=== PATIENT | female | born 1960 | race Caucasian/White ===

== ENCOUNTER → 2016-05-27 | Outpatient (CLI) | payer OTHER ==
--- NOTE | 2016-05-27 16:08 | CT ---
Procedure: CT CERVICAL SPINE WITHOUT IV CONTRAST Exam date: 05/27/2016 2:00 PM CDT Ordering Provider: Nika Sevilla Clinical Indication: NECK PAIN Comparison: None Technique: Using a multislice scanner, sequential axial imaging was obtained from the skull base to the T1 level. 2-D sagittal and coronal reconstruction images were obtained. Exam was reconstructed at 2 mm slice thickness. Findings: Postsurgical changes of an ACDF from C6 to C7. No evidence of hardware failure. There is no significant osseous bridging across the disc space or posterior column. There has been prior surgical fusion of C5-C6 with osseous bridging across the disc space. Partial osseous bridging across the right facet pillar with persistence of joint space across the left facet pillar. There is advanced degenerative disc changes at C4-C5 with endplate bony ridging and degenerative anterolisthesis secondary to facet arthrosis. Facet joints demonstrate right greater than left facet arthrosis with subchondral cystic change and subchondral sclerosis. Trace degenerative anterolisthesis of C3 on C4. There is also degenerative changes atlantodental articulation. There is no acute fracture. No evidence of traumatic subluxation. The vertebral body heights are normal. There is no lytic or sclerotic lesion. The prevertebral soft tissues are normal. IMPRESSION: 1. Nonacute CT of the cervical spine. 2. Extensive postsurgical changes and degenerative changes of degenerative disc changes and right greater than left facet arthrosis. Electronically signed by: Juan Ramon Boyle MD 05/27/2016 4:06 PM CDT
== END | disposition home or self-care (01) ==
LOC: CT 14:05
PROVIDERS: ATTEND Nurse Practitioner Family
DX: M54.2 Cervicalgia (principal)

== ENCOUNTER 2016-07-10 14:29 | Emergency (ER) | payer OTHER ==
[2016-07-10] MEDS ORDERED: ONDANSETRON ODT 8 MG TAB SL ONE (14:51)
[2016-07-10] MEDS ORDERED: PROCHLORPERAZINE INJ 10 MG/2 ML VIAL IV ONE ×2 (14:53→21:24)
[2016-07-10] MEDS ORDERED: SODIUM CHLORIDE 0.9% 1000ML 1,000 ML IVS ONE ×2 (14:53→20:28)
--- NOTE | 2016-07-10 15:16 | RAD ---
3 view abdomen. Indication: n/v Comparison: None. Impression: Heart size normal. Emphysema suspected. Several calcified granulomas in the right lung. Otherwise, lungs clear. Hydronephrosis aorta. Cholecystectomy clips. No free air. Bowel gas pattern nonspecific. Questionable centimeter linear calcification projecting medial to the left kidney. CT could better evaluate. Multiple tiny calcified phleboliths in the pelvis as well as right lateral to the lumbosacral junction. No acute osseous abnormality. Electronically signed by: Piotr Santana MD 07/10/2016 3:15 PM CDT
[2016-07-10] MEDS ORDERED: PROMETHAZINE HCL 25 MG TAB PO ONE (16:45)
[2016-07-10] MEDS ORDERED: ONDANSETRON INJ 4 MG/2 ML VIAL IV ONE (16:49)
[2016-07-10] MEDS ORDERED: SCOPOLAMINE PATCH 1.5MG 1 EA TD ONE (17:18)
--- NOTE | 2016-07-10 17:46 | ED.PDOC ---
History of Present Illness - General Source: patient Exam Limitations: no limitations - History of Present Illness Initial Comments: the patient is a 55-year-old female presenting to the emergency room secondary to nausea and vomiting. She has been having some diarrhea for the previous day. The nausea and vomiting started several hours prior to arrival here. She is not throwing up any blood. She is not really having abdominal pain. No fevers. She does not normally have any GI issues. There've been multiple members of the community with similar symptoms recently. No fevers. No syncope. no chest pain or shortness of breath. She is significantly anxious. Timing/Duration: 4-6 hours Severity: severe Improving Factors: nothing Worsening Factors: nothing Associated Symptoms: loss of appetite, malaise, nausea/vomiting <Carlos Alaniz - Last Filed: 07/10/16 17:43> <Daniella Seals - Last Filed: 07/10/16 22:24> - General Chief Complaint: GI Problem Stated Complaint: N/V/D Time Seen by Provider: 07/10/16 14:52 - History of Present Illness Allergies/Adverse Reactions: Allergies Cyclobenzaprine [From Flexeril] Allergy (Verified 09/07/15 13:12) Ketorolac Tromethamine [From Toradol] Allergy (Verified 09/07/15 13:12) Tramadol Allergy (Verified 09/07/15 13:12) Home Medications: Ambulatory Orders Albuterol Sulfate Nebs [Proventil Nebs] 2.5 mg INH DAILY 09/07/15 Citalopram Hydrobromide [Celexa] 40 mg PO DAILY 09/07/15 Hydroxyzine HCl 50 mg PO DAILY 09/07/15 Promethazine HCl 25 mg PO Q6H PRN #15 tab 07/10/16 Review of Systems - Review of Systems Constitutional: States: malaise EENTM: States: no symptoms reported Respiratory: States: no symptoms reported Cardiology: States: no symptoms reported Gastrointestinal/Abdominal: States: see HPI, diarrhea, nausea, vomiting Genitourinary: States: no symptoms reported Musculoskeletal: States: no symptoms reported Skin: States: no symptoms reported Neurological: States: anxiety Endocrine: States: no symptoms reported All other Systems: No Change from Baseline <Carlos Alaniz - Last Filed: 07/10/16 17:43> Past Medical History (General) - Patient Medical History Hx Seizures: No Hx Stroke: No Hx Asthma: Yes Hx of COPD: Yes Hx Cardiac Disorders: No Hx Congestive Heart Failure: No Hx Hypertension: Yes Hx Diabetes: No Hx Cancer: No Hx Hepatitis C: No Surgical History: cholecystectomy, Hysterectomy, other - Vaccination History Hx Influenza Vaccination: Yes Hx Pneumococcal Vaccination: No - Social History Hx Tobacco Use: Yes Hx Alcohol Use: No - Female History Patient : No <Carlos Alaniz - Last Filed: 07/10/16 17:43> Family Medical History - Family History Mother Family History: Unknown <Carlos Alaniz - Last Filed: 07/10/16 17:43> Physical Exam - Physical Exam General Appearance: Alert, Anxious Eye Exam: bilateral normal Ears, Nose, Throat: hearing grossly normal, normal ENT inspection, normal pharynx Neck: non-tender, full range of motion, supple, normal inspection Respiratory: chest non-tender, lungs clear, normal breath sounds, no respiratory distress, no accessory muscle use Cardiovascular/Chest: normal peripheral pulses, regular rate, rhythm, no edema Peripheral Pulses: radial,right: 2+, radial,left: 2+, dorsalis pedis,right: 2+, dorsalis pedis,left: 2+ Gastrointestinal/Abdominal: non tender Rectal Exam: deferred Back Exam: normal inspection, no CVA tenderness Extremity: normal range of motion, non-tender, normal inspection, no pedal edema , normal capillary refill Neurologic: no motor/sensory deficits, alert, oriented x 3 Skin Exam: normal color Comments: Vital Signs - 24 hr 07/10/16 07/10/16 14:38 16:15 Pulse Rate [RAC 73 66 ] Respiratory 24 18 Rate Blood Pressure 187/101 158/124 [RAC] O2 Sat by Pulse 100 100 Oximetry <Carlos Alaniz Katya - Last Filed: 07/10/16 17:43> Progress - Results/Orders Results/Orders: Laboratory Tests 07/10/16 07/10/16 15:30 15:30 WBC 7.6 RBC 4.89 Hgb 15.9 Hct 46.1 MCV 94.3 MCH 32.4 H MCHC 34.4 RDW 14.0 Plt Count 253 MPV 8.5 Absolute Neuts (auto) 5.20 Absolute Lymphs (auto) 1.90 Absolute Monos (auto) 0.40 Absolute Eos (auto) 0.00 Absolute Basos (auto) 0.10 Neutrophils % 68.3 Lymphocytes % 25.1 Monocytes % 5.3 Eosinophils % 0.3 L Basophils % 1.0 Sodium 139 Potassium 3.7 Chloride 105 Carbon Dioxide 23 Anion Gap 14.7 BUN 10 Creatinine 0.60 BUN/Creatinine Ratio 16.7 Random Glucose 129 H Serum Osmolality 278.3 Calcium 10.1 Total Bilirubin 0.7 AST 34 ALT 27 Alkaline Phosphatase 117 Creatine Kinase 50 CK-MB (CK-2) 1.3 CK-MB (CK-2) % Not Reportable Troponin I < 0.02 B-Natriuretic Peptide 54.4 Serum Total Protein 8.6 H Albumin 4.5 Globulin 4.1 H Albumin/Globulin Ratio 1.1 Amylase 32 Lipase 33 abdominal x-ray series is nonspecific. No evidence of obstruction. No evidence of pneumonia. No evidence of ileus at this time. <Carlos Alaniz L - Last Filed: 07/10/16 17:43> - Progress Progress: 07/10/16 22:00 Patient was re-evaluated at 2014. She continued to be anxious and continued to have nausea. She was given Ativan 0.5 mg to help with the anxiety and another liter of fluids was started. At 21:15, Patient had had one episode of vomiting with a minimal amount of bile. She was given prochlorperizine 5 mg IV. At 2200, Patient's IV n her foot was no longer patent. The bolus was stopped. Since Patient has had no vomiting, she will be sent home with promethazine 25 mg PO Q6H PRN nausea/vomiting. - Results/Orders Results/Orders: Laboratory Last Values WBC 7.6 K/mm3 (4.8-10.8) 07/10/16 15:30 RBC 4.89 M/mm3 (4.20-5.40) 07/10/16 15:30 Hgb 15.9 gm/dL (12.0-16.0) 07/10/16 15:30 Hct 46.1 % (36.0-47.0) 07/10/16 15:30 MCV 94.3 fl (81.0-99.0) 07/10/16 15:30 MCH 32.4 pg (27.0-31.0) H 07/10/16 15:30 MCHC 34.4 g/dL (33.0-37.0) 07/10/16 15:30 RDW 14.0 % (11.5-14.5) 07/10/16 15:30 Plt Count 253 K/mm3 (130-400) 07/10/16 15:30 MPV 8.5 fl (7.40-10.4) 07/10/16 15:30 Absolute Neuts (auto) 5.20 K/uL (1.8-6.8) 07/10/16 15:30 Absolute Lymphs (auto) 1.90 K/uL (1.0-3.4) 07/10/16 15:30 Absolute Monos (auto) 0.40 K/uL (0.2-0.8) 07/10/16 15:30 Absolute Eos (auto) 0.00 K/uL (0.0-0.4) 07/10/16 15:30 Absolute Basos (auto) 0.10 K/uL (0.0-0.1) 07/10/16 15:30 Neutrophils % 68.3 % (42.0-78.0) 07/10/16 15:30 Lymphocytes % 25.1 % (20.0-50.0) 07/10/16 15:30 Monocytes % 5.3 % (2.0-9.0) 07/10/16 15:30 Eosinophils % 0.3 % (1.0-5.0) L 07/10/16 15:30 Basophils % 1.0 % (0.0-2.0) 07/10/16 15:30 Sodium 139 mmol/L (135-145) 07/10/16 15:30 Potassium 3.7 mmol/L (3.6-5.0) 07/10/16 15:30 Chloride 105 mmol/L (101-111) 07/10/16 15:30 Carbon Dioxide 23 mmol/L (21-31) 07/10/16 15:30 Anion Gap 14.7 (12-18) 07/10/16 15:30 BUN 10 mg/dL (7-18) 07/10/16 15:30 Creatinine 0.60 mg/dL (0.6-1.3) 07/10/16 15:30 BUN/Creatinine Ratio 16.7 (10-20) 07/10/16 15:30 Random Glucose 129 mg/dL (70-105) H 07/10/16 15:30 Serum Osmolality 278.3 mOsm/L (275-295) 07/10/16 15:30 Calcium 10.1 mg/dL (8.4-10.2) 07/10/16 15:30 Total Bilirubin 0.7 mg/dL (0.2-1.0) 07/10/16 15:30 AST 34 IU/L (10-42) 07/10/16 15:30 ALT 27 IU/L (10-60) 07/10/16 15:30 Alkaline Phosphatase 117 IU/L (42-121) 07/10/16 15:30 Creatine Kinase 50 IU/L (26-140) 07/10/16 15:30 CK-MB (CK-2) 1.3 ng/mL (0.0-4.4) 07/10/16 15:30 CK-MB (CK-2) % Not Reportable 07/10/16 15:30 Troponin I < 0.02 ng/mL (0.01-0.05) 07/10/16 15:30 B-Natriuretic Peptide 54.4 pg/ml (0-100) 07/10/16 15:30 Serum Total Protein 8.6 gm/dL (6.4-8.2) H 07/10/16 15:30 Albumin 4.5 g/dl (3.2-5.5) 07/10/16 15:30 Globulin 4.1 gm/dL (2.3-3.5) H 07/10/16 15:30 Albumin/Globulin Ratio 1.1 (1.1-1.9) 07/10/16 15:30 Amylase 32 U/L (28-100) 07/10/16 15:30 Lipase 33 U/L (22-51) 07/10/16 15:30 Urine Color Yellow (Yellow) 07/10/16 18:43 Urine Appearance Clear (Clear) 07/10/16 18:43 Urine pH 6.5 (4.5-7.8) 07/10/16 18:43 Ur Specific Bowen 1.025 (1.005-1.030) 07/10/16 18:43 Urine Protein 100 mg/dL H 07/10/16 18:43 Urine Glucose (UA) Negative mg/dL (Negative) 07/10/16 18:43 Urine Ketones 40 mg/dL (NEGATIVE) H 07/10/16 18:43 Urine Blood Trace-intact (Negative) H 07/10/16 18:43 Urine Nitrite Negative 07/10/16 18:43 Urine Bilirubin Small (NEGATIVE) H 07/10/16 18:43 Urine Urobilinogen 1.0 mg/dL (0.2-1.0) 07/10/16 18:43 Ur Leukocyte Esterase Negative (Negative) 07/10/16 18:43 Urine RBC 1-3 /hpf 07/10/16 18:43 Urine WBC 0-1 /hpf 07/10/16 18:43 Ur Epithelial Cells 1-3 /hpf 07/10/16 18:43 Amorphous Sediment 1+ 07/10/16 18:43 Urine Bacteria Rare 07/10/16 18:43 Urine Mucus Large 07/10/16 18:43 Urine HCG, Qual Negative 07/10/16 18:43 <Daniella Seals - Last Filed: 07/10/16 22:24> Departure <Carlos Alaniz - Last Filed: 07/10/16 17:43> - Departure Time of Disposition: 22:06 Diet: bland diet <Daniella Seals - Last Filed: 07/10/16 22:24> - Departure Clinical Impression: Gastroenteritis Disposition: Discharge to Home or Self Care Condition: Good Departure Forms: ED Discharge - Pt. Copy, Patient Portal Self Enrollment Instructions: DI for Viral Gastroenteritis -- Adult, Viral Gastroenteritis, Gastroenteritis Diet Referrals: Ariel Zelaya MD [Primary Care Provider] - 1-5 Days Prescriptions: Promethazine HCl 25 mg PO Q6H PRN #15 tab PRN Reason: Nausea/Vomiting Home Medications: Ambulatory Orders Albuterol Sulfate Nebs [Proventil Nebs] 2.5 mg INH DAILY 09/07/15 Citalopram Hydrobromide [Celexa] 40 mg PO DAILY 09/07/15 Hydroxyzine HCl 50 mg PO DAILY 09/07/15 Promethazine HCl 25 mg PO Q6H PRN #15 tab 07/10/16 Additional Instructions: BRAT diet (bananas, rice, applesauce, toast). Stay well-hydrated. Follow up with PCP if symptoms persist. Follow up in ED for any continued vomiting, fever , or severe abdominal pain.
[2016-07-10] MEDS ORDERED: HYDROcodone 7.5MG/APAP 325MG 1 EA TAB PO ONE (18:52)
[2016-07-10] MEDS ORDERED: CITALOPRAM HBR 20 MG TAB ONE (19:07)
[2016-07-10] MEDS ORDERED: CELECOXIB 100 MG CAP PO ONE (19:08)
[2016-07-10] MEDS ORDERED: HYDROcodone 10MG/APAP 325MG 1 EA TAB PO ONE (19:25)
[2016-07-10] MEDS ORDERED: SODIUM CHLORIDE 0.9% 1000ML 1,000 ML ONE (20:29)
[2016-07-10] MEDS ORDERED: PROMETHAZINE TAB (ER DISP) 25 MG TAB PO ONE (22:22)
[2016-07-10 22:47] VITALS: BP 158/74; TEMP 97.8; O2SAT 98
[2016-07-11] MEDS ORDERED: CITALOPRAM HBR 20 MG TAB PO ONE (18:53)
== END 2016-07-10 22:35 | disposition home or self-care (01) ==
LOC: ER 14:29
DX: K52.9 Noninfective gastroenteritis and colitis, unspecified (principal); J44.9 Chronic obstructive pulmonary disease, unspecified; I10 Essential (primary) hypertension; Z79.899 Other long term (current) drug therapy
CPT/HCPCS: 36415; 74020; 80053; 81001; 81025; 82150; 82550; 82553; 83690; 83880; 84484; 85025; J0780; J2060; J2405; J7030; Q0169

== ENCOUNTER → 2016-07-22 | Outpatient (CLI) | payer OTHER | END | disposition home or self-care (01) | LOC: YCFC.O 15:14 | PROVIDERS: ATTEND Anesthesiology Pain Medicine | DX: Z79.891 Long term (current) use of opiate analgesic (principal) ==

== ENCOUNTER → 2016-10-21 | Outpatient (CLI) | payer OTHER | END | disposition home or self-care (01) | LOC: YCFC.O 12:53 | PROVIDERS: ATTEND Anesthesiology Pain Medicine | DX: Z79.891 Long term (current) use of opiate analgesic (principal) ==

== ENCOUNTER → 2016-11-25 | Outpatient (CLI) | payer OTHER | LOC: MAMMO 14:42 | PROVIDERS: ATTEND Family Medicine | DX: Z12.31 Encounter for screening mammogram for malignant neoplasm of breast (principal) ==

== ENCOUNTER → 2016-11-28 | Outpatient (CLI) | payer OTHER ==
--- NOTE | 2016-11-29 16:54 | RAD ---
PROCEDURE: Chest,2 Views CLINICAL HISTORY: COUGH INDICATION: Same as above COMPARISON: None TECHNIQUE: PA and and lateral chest radiographs were obtained. FINDINGS: Benign calcified lymph nodes are seen in the right paratracheal region and the right hilum There are no discrete airspace infiltrates, pneumothoraces or pleural effusions. The pulmonary vascularity is normal The cardiomediastinal silhouette is unremarkable for patient's age and sex. IMPRESSION: There is no acute pleural-parenchymal process seen in the imaged lung sal[place]. Place of interpretation: [facility]. Electronically signed by: Yeison Zabala MD 11/29/2016 4:53 PM CDT Workstation: [id number]
== END ==
LOC: YCFC.O 12:02
PROVIDERS: ATTEND Nurse Practitioner Family
DX: R05 Cough (principal)

== ENCOUNTER → 2017-01-13 | Outpatient (CLI) | payer OTHER ==
--- NOTE | 2017-01-14 10:33 | US ---
EXAM DESCRIPTION: Carotid Duplex CLINICAL HISTORY: CAROTID ARTERY STENOSIS AND occlusion COMPARISON: None Available. TECHNIQUE: Multiple grayscale, color, and spectral Doppler images of the bilateral carotid systems. FINDINGS: Mild scattered atherosclerotic plaque and mild intimal thickening throughout both carotid systems. Up to 40% area stenosis in the proximal right internal carotid artery based on grayscale imaging. Up to 30% area stenosis in the proximal left internal carotid artery on grayscale imaging. All duplex waveforms and velocities are within normal limits on both sides. ICA/CCA ratios are normal. Both vertebral arteries demonstrate antegrade flow. The external carotid arteries are patent. IMPRESSION: 1. Atherosclerosis and intimal thickening with less than 50% stenosis in both internal carotid arteries by ratio and velocity criteria. Electronically signed by: Humberto Borges MD 01/14/2017 10:31 AM CDT
== END | disposition home or self-care (01) ==
LOC: US 13:15
PROVIDERS: ATTEND Family Medicine
DX: I65.23 Occlusion and stenosis of bilateral carotid arteries (principal)

== ENCOUNTER → 2017-01-26 | Outpatient (CLI) | payer OTHER | END | disposition home or self-care (01) | LOC: YCFC.O 09:55 | PROVIDERS: ATTEND Anesthesiology Pain Medicine | DX: Z79.891 Long term (current) use of opiate analgesic (principal) ==

== ENCOUNTER → 2017-07-17 | Outpatient (CLI) | payer OTHER ==
--- NOTE | 2017-07-17 18:22 | MRI ---
EXAM DESCRIPTION: Lumbar Spine w/o Contrast CLINICAL HISTORY: SPINAL STENOSIS COMPARISON: Previous study December 03, 2015 TECHNIQUE: MRI of the lumbar spine is performed according to our usual protocol with axial and sagittal multi sequence imaging. FINDINGS: Sagittal T2 images reveal decreased signal intensity consistent with desiccation of the intervertebral discs and lower thoracic and lumbar levels except for L2-3. Posterior annular bulges are most prominent at L3-4 through L5-S1. No prevertebral mass or aneurysm. Lower cord and conus appear normal. Tip of the conus is behind L1. Compared to previous sagittal T2 images November 23, 2015, findings appear very similar. Sagittal T1 images reveal benign marrow signal characteristics. Normal T1 signal intensity and appearance of the lower cord and conus. Sagittal STIR images are negative for marrow edema within the vertebral bodies or posterior elements. No paraspinous fluid collection or cystic lesion. No definite change on STIR images compared to previous study November 23, 2015. Axial T1 and T2-weighted images were obtained to evaluate the disc levels. T12-L1: No posterior annular bulge or herniation. No spinal stenosis or neural foraminal narrowing. Facets appear normal. Normal lower cord. L1-2: Moderate diffuse posterior annular bulge without focal herniation. No spinal stenosis or neural foraminal narrowing. Facets appear mildly hypertrophic with prominent ligamentum flavum thickening. No significant subarticular recess narrowing. L2-3: Mild diffuse posterior annular bulge with mild left lateral accentuation. No spinal stenosis or neural foraminal narrowing. Hypertrophic facets with ligamentum flavum thickening cause mild left subarticular recess narrowing. L3-4: [id number] diffuse posterior annular bulge is seen with left more than right subarticular recess narrowing. Facet and ligamentum flavum hypertrophy contribute to the narrowing. Moderate left neural foraminal narrowing is present with mild neural foraminal narrowing on the right. No high-grade spinal stenosis though there is central crowding of the nerve roots. L4-5: Moderately severe diffuse posterior bulge is seen with facet hypertrophy and ligamentum flavum thickening causing severe narrowing of right more than left subarticular recesses affecting the descending L5 nerve roots. There is mild narrowing of the upper lateral recesses as well. Moderately severe left and severe right neural foraminal narrowing is present. Compared to previous study the degree of neural foraminal narrowing at this level appears slightly worsened. L5-S1: Moderate diffuse posterior annular bulge is seen with subarticular recess narrowing. Mild facet and ligamentum flavum hypertrophy is present. On the sagittal images, there is severe narrowing of the entry zone to the right neural foramen with moderately severe left neural foraminal narrowing as well. Compared to previous study, neural foraminal narrowing at L5-S1 appears stable. Upper sacrum appears intact. Degenerative changes are seen at the SI joints. No retroperitoneal mass or aneurysm. IMPRESSION: Moderate diffuse posterior annular bulges at L3-4 through L5-S1 levels with associated subarticular recess and neural foraminal compromise as described. [id number] spinal stenosis at L4-5 unchanged from previous study. Since previous study, slight worsening of bilateral L4-5 neural foraminal narrowing is noted. No other significant change. Electronically signed by: Clifton Guo MD 07/17/2017 6:21 PM CDT
== END ==
LOC: MRI 12:52
PROVIDERS: ATTEND Family Medicine
DX: M48.062 Spinal stenosis, lumbar region with neurogenic claudication (principal)

== ENCOUNTER 2017-08-09 09:22 | Emergency (ER) | payer OTHER ==
--- NOTE | 2017-08-09 09:42 | ED.PDOC ---
History of Present Illness - General Chief Complaint: Trauma Stated Complaint: sternal pain Time Seen by Provider: 08/09/17 09:40 Source: patient Exam Limitations: no limitations - History of Present Illness Initial Comments: patient comes in today for chest pain and left rib pain. Patient states on Thursday she slipped in the bathtub fell hitting her chest wall. She did suffer some pain but the pain has not gotten better and seems to have worsened. Patient states now every time she takes a big deep breath it hurts so severely catches her breath. She has no cough, fever, chills, palpitations, nausea or vomiting. She takes routinely hydrocodone and Flexeril daily and this has not been sufficient to help with the pain. She takes those things for her back condition that is still undergoing evaluation. Patient states she suddenly had difficulty walking back in April now has to use a cane and is scheduled to see a neurosurgeon. Patient otherwise is fairly healthy she has hypertension is well-controlled now that she is a smoker she has not have ongoing diagnoses of COPD. She does however use breathing treatments for recent pneumonia over the past couple months. Timing/Duration: other - started on Thursday after falling in the tub Improving Factors: rest Worsening Factors: movement Associated Symptoms: denies symptoms Allergies/Adverse Reactions: Allergies Cyclobenzaprine [From Flexeril] Allergy (Verified 09/07/15 13:12) Ketorolac Tromethamine [From Toradol] Allergy (Verified 09/07/15 13:12) Tramadol Allergy (Verified 09/07/15 13:12) Home Medications: Ambulatory Orders Albuterol Sulfate Nebs [Proventil Nebs] 2.5 mg INH DAILY 09/07/15 Citalopram Hydrobromide [Celexa] 40 mg PO DAILY 09/07/15 Hydroxyzine HCl 50 mg PO DAILY 09/07/15 Promethazine HCl 25 mg PO Q6H PRN #15 tab 07/10/16 Review of Systems - Review of Systems Constitutional: Denies: diaphoresis, fever, weakness EENTM: States: no symptoms reported Respiratory: States: short of breath. Denies: cough, orthopnea, wheezing Cardiology: States: chest pain. Denies: edema, palpitations, syncope Gastrointestinal/Abdominal: Denies: abdominal pain, diarrhea, nausea, vomiting Genitourinary: Denies: no symptoms reported Musculoskeletal: States: see HPI Skin: States: no symptoms reported Past Medical History (General) - Patient Medical History Hx Seizures: No Hx Stroke: No Hx Asthma: Yes Hx of COPD: Yes Hx Cardiac Disorders: No Hx Congestive Heart Failure: No Hx Hypertension: Yes Hx Diabetes: No Hx Cancer: No Hx Hepatitis C: No Surgical History: cholecystectomy, Hysterectomy, other - Vaccination History Hx Influenza Vaccination: Yes Hx Pneumococcal Vaccination: No - Social History Hx Tobacco Use: Yes Hx Alcohol Use: No - Female History Patient : No Family Medical History - Family History Mother Family History: Unknown Physical Exam - Physical Exam General Appearance: Alert, Other - holding her chest when she breathes deeply Eye Exam: bilateral normal Ears, Nose, Throat: hearing grossly normal, normal ENT inspection Neck: non-tender, full range of motion, supple, normal inspection Respiratory: other - occasional expiratory wheezes, no crackles, TTP at the L rib sternal angle at ribs 4 and 5 with no crepitus, some discoloration Cardiovascular/Chest: normal peripheral pulses, regular rate, rhythm, no edema, no gallop, no JVD, no murmur Gastrointestinal/Abdominal: normal bowel sounds, non tender, soft Neurologic: alert, oriented x 3 Progress - Progress Progress: 08/09/17 11:42 Laboratory Results D-Dimer, Quantitative < 200 ng/mL (0-230) 08/09/17 11:04 Creatine Kinase 97 IU/L (26-140) 08/09/17 11:04 CK-MB (CK-2) 2.6 ng/mL (0.0-4.4) 08/09/17 11:04 CK-MB (CK-2) % Not Reportable 08/09/17 11:04 Troponin I < 0.02 ng/mL (0.01-0.05) 08/09/17 11:04 - Results/Orders Results/Orders: Xray shows L T10 rib fracture with no pneumothorax. Patient given IV Mso4 but pain is localized anteriorly and not over fracture seen. Will check cardiac enzymes and d-dimer. Departure - Departure Clinical Impression: Rib fracture Qualifiers: Encounter type: initial encounter Rib fracture type: single rib Fracture type: closed Laterality: left Qualified Code(s): S22.32XA - Fracture of one rib, left side, initial encounter for closed fracture Disposition: Discharge to Home or Self Care Condition: Good Departure Forms: ED Discharge - Pt. Copy, Patient Portal Self Enrollment Instructions: DI for Trauma Diet: resume usual diet Activity: increase activity as tolerated Referrals: Ariel Zelaya MD [Primary Care Provider] - 1-2 Weeks Home Medications: Ambulatory Orders Albuterol Sulfate Nebs [Proventil Nebs] 2.5 mg INH DAILY 09/07/15 Citalopram Hydrobromide [Celexa] 40 mg PO DAILY 09/07/15 Hydroxyzine HCl 50 mg PO DAILY 09/07/15 Promethazine HCl 25 mg PO Q6H PRN #15 tab 07/10/16 Additional Instructions: Patient has narcotic medications at home already. Morphine given today and she should follow up with PCP on Thursday to recheck.
[2017-08-09 09:50] VITALS: TEMP 98
--- NOTE | 2017-08-09 10:26 | RAD ---
EXAM DESCRIPTION: Chest,2 Views (accession [id number]), Ribs,Left 3 Views (accession [id number]) CLINICAL HISTORY: sternal pain COMPARISON: None. FINDINGS: Frontal view of the chest and three views of the left ribs were submitted. There is atherosclerosis. There are multiple calcified lymph nodes at the right paratracheal space and right hilum. There is a fracture at the posterior right T10 rib. Cardiac silhouette is within normal limits. There is no focal parenchymal or pleural disease.. IMPRESSION: Nondisplaced fracture of the posterolateral aspect of the left T10 rib. There is no pneumothorax. Electronically signed by: Taiwo Almonte MD 08/09/2017 10:24 AM CDT
--- NOTE | 2017-08-09 10:26 | RAD ---
EXAM DESCRIPTION: Chest,2 Views (accession [id number]), Ribs,Left 3 Views (accession [id number]) CLINICAL HISTORY: sternal pain COMPARISON: None. FINDINGS: Frontal view of the chest and three views of the left ribs were submitted. There is atherosclerosis. There are multiple calcified lymph nodes at the right paratracheal space and right hilum. There is a fracture at the posterior right T10 rib. Cardiac silhouette is within normal limits. There is no focal parenchymal or pleural disease.. IMPRESSION: Nondisplaced fracture of the posterolateral aspect of the left T10 rib. There is no pneumothorax. Electronically signed by: Taiwo Almonte MD 08/09/2017 10:24 AM CDT
[2017-08-09] MEDS ORDERED: MORPHINE SULFATE INJ 10 MG/ML VIAL IV ONE (10:31)
[2017-08-09 14:24] VITALS: BP 87/57; O2SAT 97
== END 2017-08-09 11:45 | disposition home or self-care (01) ==
LOC: ER 09:22
DX: S22.32XA Fracture of one rib, left side, initial encounter for closed fracture (principal); J44.9 Chronic obstructive pulmonary disease, unspecified; J45.909 Unspecified asthma, uncomplicated; I10 Essential (primary) hypertension; F17.200 Nicotine dependence, unspecified, uncomplicated; W01.198A Fall on same level from slipping, tripping and stumbling with subsequent striking against other object, initial encounter; Y93.E1 Activity, personal bathing and showering; Y92.002 Bathroom of unspecified non-institutional (private) residence as the place of occurrence of the external cause
CPT/HCPCS: 36415; 71046; 71101; 82550; 82553; 84484; 85379; J2270

== ENCOUNTER → 2018-01-15 | Outpatient (CLI) | payer OTHER | LOC: MAMMO 13:30 | PROVIDERS: ATTEND Family Medicine | DX: Z12.31 Encounter for screening mammogram for malignant neoplasm of breast (principal) ==

== ENCOUNTER 2018-01-29 11:44 | Emergency (ER) | payer OTHER ==
[2018-01-29 11:57] VITALS: TEMP 99
[2018-01-29] MEDS ORDERED: ALUM & MAG HYDROX-SIMETHICONE 30 ML, LIDOCAINE VISCOUS 2% 15 ML PO ONE ×2 (11:59)
[2018-01-29] MEDS ORDERED: HYDROcodone 7.5MG/APAP 325MG 1 EA TAB PO ONE (11:59)
[2018-01-29] MEDS ORDERED: ASPIRIN TABLET 325 MG TAB PO ONE (11:59)
[2018-01-29] MEDS ORDERED: tiZANidine 4 MG TAB PO ONE (11:59)
[2018-01-29] MEDS ORDERED: ALUM & MAG HYDROX-SIMETHICONE 30 ML UD ONE (12:02)
[2018-01-29] MEDS ORDERED: LIDOCAINE HCL 2% (MOUTH-THROAT) 15 ML UD ONE (12:02)
--- NOTE | 2018-01-29 12:58 | RAD ---
EXAM DESCRIPTION: Chest,2 Views CLINICAL HISTORY: 57 years Female, palpitations COMPARISON: 28 November 2016 TECHNIQUE: PA/lateral FINDINGS: There is no cardiac or pulmonary abnormality. The lungs are clear. There is no effusion. Calcified granulomas are observed in the right hilar region. An anterior cervical fusion plate is noted. IMPRESSION: The exam demonstrates evidence of prior granulomatous disease and is otherwise unremarkable. Electronically signed by: Peyman Dan MD 01/29/2018 12:56 PM [employer]
--- NOTE | 2018-01-29 16:43 | ED.PDOC ---
History of Present Illness - General Chief Complaint: Chest Pain/NM Stated Complaint: chest pain Time Seen by Provider: 01/29/18 11:52 Source: patient Exam Limitations: no limitations - History of Present Illness Initial Comments: the patient is a 57-year-old female presenting to the emergency room secondary to a feeling of palpitations ongoing since late last night. No real pain. No real shortness of breath. She does have some anxiety with it. No syncope or near syncope. No recent change in medications. No significant heart history. She did have a stress test less than a year ago before she underwent neck surgery and apparently did well with that. She does apparently have some history of untreated reflux issues. Timing/Duration: unsure Severity: mild Improving Factors: nothing Worsening Factors: nothing Associated Symptoms: denies symptoms Allergies/Adverse Reactions: Allergies Ketorolac Tromethamine [From Toradol] Allergy (Severe, Verified 01/29/18 12:16) Hives Cyclobenzaprine [From Flexeril] Adverse Reaction (Mild, Verified 01/29/18 12:16) Other dry mouth Tramadol Adverse Reaction (Mild, Verified 01/29/18 12:16) Other "stomach valle like its on fire" Home Medications: Ambulatory Orders Albuterol Sulfate Nebs [Proventil Nebs] 2.5 mg INH Q6H PRN 09/07/15 Citalopram Hydrobromide [Celexa] 40 mg PO DAILY 09/07/15 Aspirin [Baby Aspirin] 81 mg PO DAILY 01/29/18 Buspirone HCl 5 mg PO BID 01/29/18 Gabapentin [Neurontin] 300 mg PO TID 01/29/18 Lisinopril [Prinivil] 10 mg PO DAILY 01/29/18 tiZANidine [Zanaflex] 4 mg PO TID 01/29/18 Review of Systems - Review of Systems Constitutional: States: no symptoms reported EENTM: States: no symptoms reported Respiratory: States: no symptoms reported Cardiology: States: palpitations. Denies: chest pain Gastrointestinal/Abdominal: States: no symptoms reported Genitourinary: States: no symptoms reported Musculoskeletal: States: no symptoms reported Skin: States: no symptoms reported Neurological: States: no symptoms reported Endocrine: States: no symptoms reported Hematologic/Lymphatic: States: no symptoms reported All other Systems: No Change from Baseline Past Medical History (General) - Patient Medical History Hx Seizures: No Hx Stroke: No Hx Asthma: Yes Hx of COPD: Yes Hx Cardiac Disorders: No Hx Congestive Heart Failure: No Hx Hypertension: Yes Hx Diabetes: No Hx Cancer: No Hx Hepatitis C: No Surgical History: cholecystectomy, other - Vaccination History Hx Influenza Vaccination: Yes - December 2017 Hx Pneumococcal Vaccination: No - Social History Hx Tobacco Use: Yes Hx Alcohol Use: No - Female History Patient : No Family Medical History - Family History Mother Family History: Unknown Physical Exam - Physical Exam General Appearance: Alert, Anxious, Comfortable, No apparent distress Eye Exam: bilateral normal Ears, Nose, Throat: hearing grossly normal, normal ENT inspection, normal pharynx Neck: non-tender, supple Respiratory: lungs clear, normal breath sounds, no respiratory distress, no accessory muscle use Cardiovascular/Chest: normal peripheral pulses, regular rate, rhythm, no edema Peripheral Pulses: radial,right: 2+, radial,left: 2+, dorsalis pedis,right: 2+, dorsalis pedis,left: 2+ Gastrointestinal/Abdominal: non tender, soft Rectal Exam: deferred Back Exam: normal inspection, no CVA tenderness, no vertebral tenderness Extremity: normal range of motion, non-tender, normal inspection, no pedal edema , normal capillary refill 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, no motor/sensory deficits, alert, normal mood/affect, oriented x 3 Skin Exam: normal color Comments: Vital Signs - 24 hr 01/29/18 01/29/18 01/29/18 11:45 13:01 14:38 Temperature 99.0 F Pulse Rate [ 84 81 92 H left brachial] Respiratory 18 20 16 Rate Blood Pressure 126/81 100/67 85/46 [left brachial] O2 Sat by Pulse 100 99 99 Oximetry 01/29/18 15:46 Temperature Pulse Rate [ 71 left brachial] Respiratory 16 Rate Blood Pressure 100/65 [left brachial] O2 Sat by Pulse 99 Oximetry Progress - Progress Progress: 01/29/18 16:44 the patient's a 57-year-old female presenting to the emergency room secondary to symptoms of palpitations. Patient has shown no evidence of any arrhythmia on the telemetry monitoring for the last 5 hours. She has had symptoms of palpitations during this time. The most likely source, but certainly not confirmed at this point, is some esophageal motility disorder. She does have a history of untreated reflux. The patient is going to be placed on Carafate and famotidine for the next month. She needs to keep herself well hydrated. She needs to follow up with her primary care doctor early next week for reevaluation to make sure that she is improving. Repeat heart enzymes are negative. EKG is reassuring. Follow up next week with primary care doctor. ER warnings were given. - Results/Orders Results/Orders: Laboratory Tests 01/29/18 01/29/18 01/29/18 12:15 12:15 12:15 WBC 6.1 RBC 4.79 Hgb 15.7 Hct 45.8 MCV 95.7 MCH 32.7 H MCHC 34.2 RDW 13.2 Plt Count 188 MPV 9.4 Absolute Neuts (auto) 2.90 Absolute Lymphs (auto) 2.40 Absolute Monos (auto) 0.60 Absolute Eos (auto) 0.10 Absolute Basos (auto) 0.10 Neutrophils % 47.8 Lymphocytes % 39.5 Monocytes % 9.7 H Eosinophils % 1.6 Basophils % 1.4 PT 9.9 INR 0.99 PTT (SP) 24.7 D-Dimer, Quantitative 0.36 Sodium 136 Potassium 4.0 Chloride 103 Carbon Dioxide 23 Anion Gap 14.0 BUN 8 Creatinine 0.55 L BUN/Creatinine Ratio 14.5 Random Glucose 116 H Serum Osmolality 271.3 L Calcium 9.7 Magnesium 1.7 L Total Bilirubin 0.4 AST 40 ALT 35 Alkaline Phosphatase 127 H Creatine Kinase 46 CK-MB (CK-2) 1.7 CK-MB (CK-2) % Not Reportable Troponin I < 0.02 B-Natriuretic Peptide 6.8 Serum Total Protein 7.8 Albumin 4.6 Globulin 3.2 Albumin/Globulin Ratio 1.4 TSH 2.33 Urine Color Urine Appearance Urine pH Ur Specific Beaman Urine Protein Urine Glucose (UA) Urine Ketones Urine Blood Urine Nitrite Urine Bilirubin Urine Urobilinogen Ur Leukocyte Esterase Urine RBC Urine WBC Ur Epithelial Cells Urine Bacteria 01/29/18 01/29/18 12:55 15:44 WBC RBC Hgb Hct MCV MCH MCHC RDW Plt Count MPV Absolute Neuts (auto) Absolute Lymphs (auto) Absolute Monos (auto) Absolute Eos (auto) Absolute Basos (auto) Neutrophils % Lymphocytes % Monocytes % Eosinophils % Basophils % PT INR PTT (SP) D-Dimer, Quantitative Sodium Potassium Chloride Carbon Dioxide Anion Gap BUN Creatinine BUN/Creatinine Ratio Random Glucose Serum Osmolality Calcium Magnesium Total Bilirubin AST ALT Alkaline Phosphatase Creatine Kinase 39 CK-MB (CK-2) 1.5 CK-MB (CK-2) % Not Reportable Troponin I < 0.02 B-Natriuretic Peptide Serum Total Protein Albumin Globulin Albumin/Globulin Ratio TSH Urine Color Yellow Urine Appearance Clear Urine pH 6.0 Ur Specific Beaman 1.010 Urine Protein Negative Urine Glucose (UA) Negative Urine Ketones Negative Urine Blood Negative Urine Nitrite Negative Urine Bilirubin Negative Urine Urobilinogen 0.2 Ur Leukocyte Esterase Negative Urine RBC 0 Urine WBC 0 Ur Epithelial Cells 3-5 Urine Bacteria Rare EKG shows mild sinus tachycardia at [address] segment elevation. Normal axis. Mildly prominent P waves. Normal R-wave progression. No ST segment depression. Normal QT interval. Chest x-ray shows old granulomatous disease. No evidence of cardiomegaly or heart failure. Departure - Departure Clinical Impression: Intermittent palpitations Disposition: Discharge to Home or Self Care Condition: Fair Departure Forms: ED Discharge - Pt. Copy, Patient Portal Self Enrollment Diet: bland diet Activity: increase activity as tolerated Referrals: Ariel Zelaya MD [Primary Care Provider] - 1-5 Days Home Medications: Ambulatory Orders Albuterol Sulfate Nebs [Proventil Nebs] 2.5 mg INH Q6H PRN 09/07/15 Citalopram Hydrobromide [Celexa] 40 mg PO DAILY 09/07/15 Aspirin [Baby Aspirin] 81 mg PO DAILY 01/29/18 Buspirone HCl 5 mg PO BID 01/29/18 Gabapentin [Neurontin] 300 mg PO TID 01/29/18 Lisinopril [Prinivil] 10 mg PO DAILY 01/29/18 tiZANidine [Zanaflex] 4 mg PO TID 01/29/18 Additional Instructions: the patient's a 57-year-old female presenting to the emergency room secondary to symptoms of palpitations. Patient has shown no evidence of any arrhythmia on the telemetry monitoring for the last 5 hours. She has had symptoms of palpitations during this time. The most likely source, but certainly not confirmed at this point, is some esophageal motility disorder. She does have a history of untreated reflux. The patient is going to be placed on Carafate and famotidine for the next month. She needs to keep herself well hydrated. She needs to follow up with her primary care doctor early next week for reevaluation to make sure that she is improving. Repeat heart enzymes are negative. EKG is reassuring. Follow up next week with primary care doctor. ER warnings were given.
[2018-01-29 17:12] VITALS: BP 119/80; O2SAT 100
== END 2018-01-29 17:10 | disposition home or self-care (01) ==
LOC: ER 11:44
DX: R00.2 Palpitations (principal); R00.0 Tachycardia, unspecified; J44.9 Chronic obstructive pulmonary disease, unspecified; I10 Essential (primary) hypertension; Z87.891 Personal history of nicotine dependence; Z79.82 Long term (current) use of aspirin; Z79.899 Other long term (current) drug therapy; Z88.8 Allergy status to other drugs, medicaments and biological substances

== ENCOUNTER 2018-07-18 20:55 | Emergency (ER) | payer OTHER ==
[2018-07-18] MEDS ORDERED: tiZANidine 4 MG TAB PO ONE (21:33)
[2018-07-18] MEDS ORDERED: MORPHINE SULFATE INJ 10 MG/ML VIAL IM ONE (21:39)
--- NOTE | 2018-07-18 21:42 | ED.PDOC ---
History of Present Illness - General Chief Complaint: Back Pain or Injury Stated Complaint: back pain for past 3 weeks Time Seen by Provider: 07/18/18 21:01 Source: patient, family Exam Limitations: no limitations - History of Present Illness Initial Comments: patient comes in today for severe low back pain has been worsening over the past 3-4 weeks. Patient's had several years of low back pain from degenerative joint disease, spinal stenosis, and disc disease. atient had been onydrocodone and oxycodone but she asked her doctor to reduce her medication and to twice a day. This was done about a month and a half ago. Patient stated 3 weeks ago without injury or increased activity her back pain suddenly worsened. She states that her surgeon has a out-of-town vacation and so she went to see her PCP on 25 June. He prescribed her 60 hydrocodone but she has since gone through those pills and all of her Zanaflex and has not had any medication for about a week and a half. Patient states the pain is severe radiating down her right leg and patient cannot sleep or get any relief. The patient had a MRI performed last Thursday and should get results this week. Patient has no bowel or bladder incontinence. She's had no change of pain but states cannot take it anymore. Timing/Duration: getting worse Quality/Severity: severe Back Pain Location: lumbar spine Back Pain Radiation: buttocks, lower legs Method of Injury/Prior Injury: unknown Improving Factors: nothing Worsening Factors: movement Associated Symptoms: muscle spasms Allergies/Adverse Reactions: Allergies Ketorolac Tromethamine [From Toradol] Allergy (Severe, Verified 01/29/18 12:16) Hives Cyclobenzaprine [From Flexeril] Adverse Reaction (Mild, Verified 01/29/18 12:16) Other dry mouth Tramadol Adverse Reaction (Mild, Verified 01/29/18 12:16) Other "stomach valle like its on fire" Home Medications: Ambulatory Orders Albuterol Sulfate Nebs [Proventil Nebs] 2.5 mg INH Q6H PRN 09/07/15 Citalopram Hydrobromide [Celexa] 40 mg PO DAILY 09/07/15 Aspirin [Baby Aspirin] 81 mg PO DAILY 01/29/18 Buspirone HCl 5 mg PO BID 01/29/18 Famotidine [Pepcid Tab] 20 mg PO BID #60 tab 01/29/18 Gabapentin [Neurontin] 300 mg PO TID 01/29/18 Lisinopril [Prinivil] 10 mg PO DAILY 01/29/18 Sucralfate Tab [Carafate Tab] 1 gm PO QID #120 tab 01/29/18 tiZANidine [Zanaflex] 4 mg PO TID 01/29/18 Review of Systems - Review of Systems Constitutional: States: no symptoms reported. Denies: chills, fever EENTM: States: no symptoms reported Respiratory: States: no symptoms reported Cardiology: States: no symptoms reported. Denies: chest pain Gastrointestinal/Abdominal: States: no symptoms reported Genitourinary: States: no symptoms reported Musculoskeletal: States: back pain Neurological: States: see HPI Past Medical History (General) - Patient Medical History Hx Seizures: No Hx Stroke: No Hx Asthma: Yes Hx of COPD: Yes Hx Cardiac Disorders: No Hx Congestive Heart Failure: No Hx Hypertension: Yes Hx Diabetes: No Hx Cancer: No Hx Hepatitis C: No Surgical History: cholecystectomy, Hysterectomy - Vaccination History Hx Influenza Vaccination: Yes Hx Pneumococcal Vaccination: Yes - Social History Hx Tobacco Use: Yes Hx Alcohol Use: No - Female History Patient is a Female of Child Bearing Age (10 -59 yrs old): No Patient : No - Triage Comment ED Triage Comment: Pain for past three weeks, states her back Dr/surgeon is out of town at present. Family Medical History - Family History Mother Family History: Unknown Physical Exam - Physical Exam General Appearance: Obvious distress, Restless Eyes, Ears, Nose, Throat Exam: PERRL/EOMI, normal ENT inspection Cardiovascular/Respiratory: no M/R/G, normal peripheral pulses, normal breath sounds, no respiratory distress, tachycardia Gastrointestinal/Abdominal: normal bowel sounds, non tender, soft Back Exam: no CVA tenderness, muscle spasm - paraspinal TTP right side with no vertebral tenderness, pain along sciatic distribution Neurologic: no motor/sensory deficits, alert, oriented x 3 Departure - Departure Clinical Impression: Sciatica Qualifiers: Laterality: right Qualified Code(s): M54.31 - Sciatica, right side Disposition: Discharge to Home or Self Care Condition: Fair Departure Forms: ED Discharge - Pt. Copy, Patient Portal Self Enrollment Referrals: Ariel Zelaya MD [Primary Care Provider] - 1-2 Weeks Home Medications: Ambulatory Orders Albuterol Sulfate Nebs [Proventil Nebs] 2.5 mg INH Q6H PRN 09/07/15 Citalopram Hydrobromide [Celexa] 40 mg PO DAILY 09/07/15 Aspirin [Baby Aspirin] 81 mg PO DAILY 01/29/18 Buspirone HCl 5 mg PO BID 01/29/18 Famotidine [Pepcid Tab] 20 mg PO BID #60 tab 01/29/18 Gabapentin [Neurontin] 300 mg PO TID 01/29/18 Lisinopril [Prinivil] 10 mg PO DAILY 01/29/18 Sucralfate Tab [Carafate Tab] 1 gm PO QID #120 tab 01/29/18 tiZANidine [Zanaflex] 4 mg PO TID 01/29/18 Additional Instructions: follow up Tomorrow am with PCP to discuss MRI results and pain medication
[2018-07-18 21:57] VITALS: BP 186/72; TEMP 97; O2SAT 97
== END 2018-07-18 21:56 | disposition home or self-care (01) ==
LOC: ER 20:55 → SUPCPDRO 20:55 → ER 21:56
DX: M54.41 Lumbago with sciatica, right side (principal); I10 Essential (primary) hypertension; J44.9 Chronic obstructive pulmonary disease, unspecified; Z87.891 Personal history of nicotine dependence; Z79.899 Other long term (current) drug therapy; Z79.82 Long term (current) use of aspirin; Z88.5 Allergy status to narcotic agent; Z88.8 Allergy status to other drugs, medicaments and biological substances

== ENCOUNTER → 2018-10-12 | Outpatient (CLI) | payer OTHER | LOC: LAB.O 10:17 | DX: M86.9 Osteomyelitis, unspecified (principal); E87.6 Hypokalemia ==

== ENCOUNTER → 2018-10-19 | Outpatient (CLI) | payer OTHER ==
--- NOTE | 2018-10-19 17:43 | MRI ---
EXAM DESCRIPTION: Lumbar Spine w/wo Contrast CLINICAL HISTORY: OSTEMYLITIS. Low back pain. History of infection and lumbar spine currently on antibiotics. COMPARISON: None Available. TECHNIQUE: Multisequence multiplanar MRI of the lumbar spine was obtained without and with intravenous contrast. FINDINGS: Diffuse inflammatory changes and osseous destruction consistent with discitis osteomyelitis is new compared to prior examination 07/17/2018. Diffuse bone marrow replacement process with enhancement present at the L3 inferior endplate and posterior elements, L4 vertebral body and posterior elements, L5 vertebral body posterior element. There is osseous bony destruction resulting in approximately 40% anterior vertebral body height loss at L4 and approximately 80% bony destruction of the L5 vertebral body with collapse of the L4 and L5 vertebral bodies onto each other. L4 vertebral body posterior cortical retropulsion by approximately 1.1 cm results in severe central canal stenosis at this level (narrowing of the thecal sac to 5.8 mm in AP dimension). Within the anterior epidural phlegmon measures up to 4 mm posterior to the L4 vertebral body. A 1.5 cm peripherally enhancing fluid collection to the right of the L5 spinous process is consistent with an abscess. Enhancement of the L3-L4 and L4-L5 bilateral facet concerning for septic arthritis. Mild enhancement of the L2-L3 bilateral facet may also represent early septic arthritis. IMPRESSION: 1. Findings of L3-L5 discitis osteomyelitis with bony destruction involving majority of the L4 and L5 vertebral with L4 vertebral body retropulsion resulting in severe central canal stenosis and cauda equina nerve root impingement at the L4-L5 level. 2. Thin anterior epidural phlegmon at the L4-L5 level to 4 mm. 3. L3-L4 and L4-L5 facet joint enhancement consistent with septic arthritis. 4. A 1.5 cm peripherally enhancing fluid collection/abscess is present to the right of the L5 spinous process. 5. Diffuse inflammation/phlegmon within the paraspinal and prevertebral soft tissues at the L3-L5 levels. Critical finding: Findings on this exam including severe central canal stenosis and cauda equina nerve root impingement were relayed to infectious disease Dr Abdulkadir Don at 10/19/2018 5:39 PM CDT. Electronically signed by: Andres Herman DO 10/19/2018 5:41 PM CDT
== END ==
LOC: MRI 13:06
PROVIDERS: ATTEND Physician Assistant
DX: M46.26 Osteomyelitis of vertebra, lumbar region (principal); G06.1 Intraspinal abscess and granuloma; M48.062 Spinal stenosis, lumbar region with neurogenic claudication; M51.26 Other intervertebral disc displacement, lumbar region; M79.89 Other specified soft tissue disorders

== ENCOUNTER → 2018-11-12 | Outpatient (CLI) | payer OTHER | LOC: MRI 10:58 | PROVIDERS: ATTEND Physician Assistant Medical | DX: M86.68 Other chronic osteomyelitis, other site (principal); M46.26 Osteomyelitis of vertebra, lumbar region; G06.1 Intraspinal abscess and granuloma; M48.062 Spinal stenosis, lumbar region with neurogenic claudication; M51.26 Other intervertebral disc displacement, lumbar region ==

== ENCOUNTER → 2018-12-17 | Outpatient (CLI) | payer OTHER ==
--- NOTE | 2018-12-17 15:29 | MRI ---
EXAM DESCRIPTION: Lumbar Spine w/wo Contrast: Magnetic Resonance Imaging. CLINICAL HISTORY: INFECTION OF LUMBAR SPINE COMPARISON: None Available. TECHNIQUE: Multiplanar, MRI, multiple standard sequences, without and with Dotarem Gadolinium IV contrast, 1 mL per 5 kg dosage, lumbar spine. No adverse reactions. FINDINGS: L5-S1 disc space is well identified on axial series 501, image 3. Again noted is collapse of the L5 vertebra posterior more than anterior and centrally more than the lateral aspects. No change since the prior study. The L4 vertebra demonstrates wedging deformity anteriorly with significant loss of the anterior and lateral cortex and less compression in the posterior midline vertebral body. This is stable since the prior study. The L4-L5 disc space is essentially obliterated and hypointense bony fibrous tissue is not enhancing but there is endplate enhancement slightly more than on the prior study. Hyperintense T2 and STIR signal visualized throughout both vertebral bodies. Retrolisthesis of inferior posterior L4 vertebral body 7 mm from the superior posterior L5 vertebral body is stable. Midline AP canal diameter is 4.4 mm stable since the prior study. Enhancement in the compressed thecal sac and nerves at this level is stable. Bilateral foraminal stenosis more left than right again visualized. Widening, effusion, and enhancement of the posterior L4-L5 facet with minimal increase in effusion and enhancement compared to the prior study. Stable appearance of the left facet. L5-S1: Disc desiccation posterior disc space loss and minimal disc bulge. Hypertrophic facet arthrosis bilaterally. Bilateral foraminal stenosis caused primarily by the inferior and posterior migration of the L4 vertebral body. Mild canal narrowing. No change since the prior study. L3-L4: Depression of the superior L4 endplate stable. Schmorl's nodes with hyperintense inversion recovery signal and enhancement in the anterior and mid inferior L3 endplate. No enhancement in the disc space. Posterior broad-based disc bulge and endplate margin spurs more left than right. Borderline foraminal stenosis left and moderate to severe right foraminal narrowing. Stable since the prior study. Remaining discs and disc spaces, canal and neural foramina showing no significant change. No abnormal enhancement. Hypertrophic facet arthrosis and thickening of the ligaments bilaterally at L1-L2 resulting in moderate canal narrowing and mild to moderate foraminal narrowing. Posterior midline hyperintense T2 annular fissure with minimal enhancement stable since the prior study. Conus terminates at L1. No abnormal enhancement in the conus or included cord. Vertebral bodies are not compressed at other level. Normal marrow signal in the remaining vertebral bodies and the posterior elements. IMPRESSION: 1. Previous discitis and osteomyelitis at L4-L5 resulting in superior, posterior and central collapse of the L5 vertebral body, and anterior and lateral collateral of the L4 vertebral body. Retrolisthesis of the L4 on L5 is stable. Foraminal stenosis and severe canal stenosis is stable at the L4-L5 level. Enhancement of the compressed thecal sac and nerve at the canal stenosis is again seen. L4-L5 endplates with minimal enhancement, slightly more than on the prior study versus no change. The disc space is showing no additional collapse. Widening, effusion and enhancement of the posterior L4-L5 facet and adjacent soft tissues has slightly progressed since the prior study. 2. Bilateral foraminal stenosis at L5-S1, but not progressed compared to the prior study. 3. Schmorl's nodes in the inferior L3 endplate with edema and enhancement are stable since the prior study. L3-L4 disc space is maintained with no enhancement in the disc space. No further depression of the superior L4 endplate. Borderline left foraminal stenosis and moderate to severe right foraminal narrowing is unchanged. Electronically signed by: Raymundo Cartagena MD 12/17/2018 3:27 PM CDT
== END ==
LOC: MRI 10:00
PROVIDERS: ATTEND Physician Assistant Medical
DX: M86.8X8 Other osteomyelitis, other site (principal); M48.56XA Collapsed vertebra, not elsewhere classified, lumbar region, initial encounter for fracture; M43.16 Spondylolisthesis, lumbar region; M48.07 Spinal stenosis, lumbosacral region; M51.46 Schmorl's nodes, lumbar region

== ENCOUNTER → 2019-09-29 | Outpatient (CLI) | payer OTHER ==
--- NOTE | 2019-09-29 14:36 | CT ---
TECHNIQUE: Axial images of the lumbar spine were obtained with multiple reconstructions provided. This exam was performed according to our departmental dose-optimization program, which includes automated exposure control, adjustment of the mA and/or kV according to patient size and/or use of iterative reconstruction technique. CLINICAL HISTORY PROVIDED: DEFORMING DORSOPATHY UNSPECIFIED COMPARISON: 12/17/2018 FINDINGS: Five lumbar type vertebral bodies are present. Alignment: Similar retrolisthesis L4 on L5. Fracture: Remote L5 superior endplate collapse, with similar height loss. Similar remote L4 anterior/inferior endplate collapse. The L4/L5 vertebral bodies are partially fused across the disc space. Paraspinal Soft Tissues/ Retroperitoneum: Nonobstructing left renal calculus. The right kidney is not identified. Atherosclerotic disease. L1/2: Disc space narrowing. Small symmetric disc bulge osteophyte complex. Bilateral facet hypertrophy. No significant central canal stenosis. Mild left neural foraminal narrowing. L2/3: Small symmetric disc bulge. Bilateral facet hypertrophy. No significant central canal stenosis. Mild left neural foraminal narrowing. L3/4: Posterior disc space narrowing. Endplate degenerative change. Diffuse symmetric disc bulge osteophyte complex. Bilateral facet hypertrophy. No significant central canal stenosis. Severe bilateral neural foraminal narrowing. L4/5: Partial fusion across the disc space. Similar retrolisthesis L4 on L5. Diffuse disc bulge osteophyte complex. Severe central canal stenosis. The left neural foramen is either severely narrowed or fused. Severe right neural foraminal narrowing. L5/S1: Disc space narrowing with endplate degenerative change. Diffuse symmetric disc bulge osteophyte complex. No significant central canal stenosis. Bilateral neural foraminal narrowing. IMPRESSION: Similar acquired degenerative changes of the lumbar spine with partial fusion of the L4/L5 vertebral bodies as above. Electronically signed by: nOur Genao MD 09/29/2019 2:34 PM CDT
== END ==
LOC: CT 09:38
PROVIDERS: ATTEND Nurse Practitioner Acute Care
DX: M43.9 Deforming dorsopathy, unspecified (principal); Z87.39 Personal history of other diseases of the musculoskeletal system and connective tissue

== ENCOUNTER → 2019-12-09 | Outpatient (CLI) | payer OTHER | LOC: YCFC.O 08:14 | PROVIDERS: ATTEND Family Medicine | DX: I10 Essential (primary) hypertension (principal); M86.9 Osteomyelitis, unspecified; R53.83 Other fatigue; Z13.220 Encounter for screening for lipoid disorders ==

== ENCOUNTER → 2019-12-20 | Outpatient (CLI) | payer OTHER ==
--- NOTE | 2019-12-22 16:49 | CT ---
Procedure: CT LUNG SCREENING Exam Date: December 20, 2019. Ordering Provider: Michele Seymour Clinical Indication: PERSONAL HISTORY OF TOBACCO DEPENDENCE . Current cigarette smoker. 40-80 pack year history. This patient meets eligibility criteria for low-dose CT lung cancer screening. Comparison: Chest x-ray August 2018. Technique: Using a multislice scanner, sequential helical axial imaging was obtained in the thorax, 2.5 mm thickness, 2.5 mm separation, from the level of the thoracic inlet through the lung bases without IV contrast. A low dose protocol was utilized for BMI less than 30: BMI: 5.5. CTDI: 1.76 mGy. 120. kVp. 45 mA. DLP 61 mGy-cm. 2D sagittal and coronal reconstructed images, 6.0 mm thickness, were obtained. This exam was performed according to our departmental dose optimization program which includes use of automated exposure control, adjustment of the mA and/or kV according to patient size and/or use of iterative reconstruction technique. Nodule measurements under 10 mm are given as mean value of 3 axes diameters. FINDINGS: Lungs and large airways: Bilateral small parenchymal blebs in a centrilobular distribution predominantly upper lung [place] more than mid lung. 3 mm subpleural solid nodule lateral right upper lobe on 6 CT axial series 2, image 35 bilobed calcified nodule in the right middle lobe abutting the right major fissure measuring 9 mm on image 2/61. Minimal bilateral basilar dependent atelectasis. 3 mm calcified nodule subpleural lateral recess right lower lobe on image 2/94. Pleural parenchymal scarring in the base of the right middle lobe and in the inferior lingula. Platelike atelectasis in the lateral left lower lobe with pleural parenchymal scarring. No abnormal nodules or focal mass. No acute infiltrate. Pleura and space: No acute process. Mediastinum and larisa: evaluation limited by low dose technique and lack of IV contrast. Calcifications most likely degenerated nodes or prior inflammatory nodes in the AP window, azygos space, subcarinal space, and right hilum. No enlarged nodes and no dominant soft tissue mass. Heart and great vessels: Several brachiocephalic vessels with atherosclerotic calcifications, along with aortic arch and descending thoracic aorta. Ectasia of the ascending aortic arch. Coronary artery calcifications. Chest wall, lower neck, axillae: Evaluation also limited by same factors as described above. Normal size axillary nodes. Thyroid gland was incompletely imaged.. Upper abdomen: Evaluation limited by low-dose technique. Splenic calcifications. Surgical clips in the gallbladder fossa with no fluid. No free air or free fluid in the included peritoneal space. Osseous structures: Evaluation limited by low dose MIP technique. Also sternal fracture just below the manubriosternal joint. Prior ACDF from prior lumbar fusion with hardware. IMPRESSION: Emphysematous changes mostly in the upper lobes bilaterally. Small nodules but not clinically significant. No abnormal nodules or masses. No acute infiltrate.. [facility] Best Practice Recommendations: please see below for Lung RADS category and FOLLOW-UP.* *Lung RADS category CATEGORY 2S- Nodules with a very low likelihood (less than 1%) of becoming a clinically active cancer due to size or lack of growth. Nodules: Perifissural nodule(s) < 10 mm. (526mm3). Solid or part solid nodule(s) less than 6mm (113.1 mm3), new solid nodule less than 4mm (33.5 mm3). Ground glass nodule(s) less than 30mm (91651.2 mm3) or unchanged or slow growing ground glass nodule 30mm or greater. Cat 3 or 4 nodule unchanged for 3 or more months. FOLLOW-UP: Continue annual screening with a Low Dose Chest CT in 12 months for re-evaluation. 2. Lung RADS Modifier S - Clinically Significant or Potentially Clinically Significant Findings (non lung cancer): Coronary artery calcifications. Electronically signed by: Raymundo Cartagena MD 12/22/2019 4:47 PM CDT
--- NOTE | 2019-12-22 17:03 | MAM ---
EXAM DESCRIPTION: 3D Screening BILATERAL : Digital Mammography. CLINICAL HISTORY: 59 years Female ANNUAL SCREENING no complaints. Mother with breast cancer at age 82. Remote family history of breast cancer. Menarche age 16. Childbirth age 17. Menopause age 23. HRT 5 or more years ago. Lifetime risk of developing breast cancer (Tyrer-Cuzick model)(%): 12.1. COMPARISON: Bilateral screening digital breast tomosynthesis January 2018 and bilateral screening digital 2-D mammography November 2016. Low dose CT lung cancer screening examination on the same visit. TECHNIQUE: Bilateral CC and MLO projection full-field images, digital tomosynthesis mammographic technique. Bilateral digital 2-D full-field MLO images. CAD available for 2-D images. FINDINGS: The breast parenchymal density pattern is: Scattered areas of fibroglandular density. No skin thickening or nipple retraction. Axillary nodes. Solitary microcalcifications. No new focal, stellate mass or density, focal asymmetry , and no suspicious microcalcifications bilaterally. Stable mammograms compared to prior study. IMPRESSION: Benign exam. BIRAD CATEGORY: 2 BENIGN FINDINGS. RECOMMENDATIONS: FOLLOW UP: Routine digital bilateral mammographic screening, one year interval from December 2019. Written communication explaining the IMPRESSION and follow-up, will be mailed to the patient and referring health care provider. According to the [employer], yearly mammograms are recommended starting at age 40 and continuing as long as a woman is in good health. Any breast change noted on a breast self-exam should be reported promptly to the patient's healthcare provider. Breast MRI is recommended for women with an approximately 20-25% or greater lifetime risk of breast cancer, including women with a strong family history of breast or ovarian cancer and women who have been treated for Hodgkin's disease. A negative mammographic report should not delay tissue diagnosis in patients with significant clinical history or physical findings. Extremely dense breast tissue limits the sensitivity of digital mammography. Electronically signed by: Raymundo Cartagena MD 12/22/2019 5:01 PM CDT
== END ==
LOC: MAMMO 10:00
PROVIDERS: ATTEND Family Medicine
DX: Z12.31 Encounter for screening mammogram for malignant neoplasm of breast (principal); J43.9 Emphysema, unspecified; R91.8 Other nonspecific abnormal finding of lung field; Z87.891 Personal history of nicotine dependence
CPT/HCPCS: 77063; 77067; G0297

== ENCOUNTER → 2019-12-21 | Outpatient (CLI) | payer OTHER | LOC: YCFC.O 09:41 | PROVIDERS: ATTEND Family Medicine | DX: R79.89 Other specified abnormal findings of blood chemistry (principal); D64.9 Anemia, unspecified ==

== ENCOUNTER → 2019-12-27 | Outpatient (CLI) | payer OTHER ==
--- NOTE | 2019-12-28 08:58 | US ---
EXAM DESCRIPTION: Carotid Duplex: ULTRASOUND. CLINICAL HISTORY: 59 years Female CAROTID ARTERY STENOSIS COMPARISON: 7 carotid duplex December 2016. TECHNIQUE: Transcutaneous scanning utilizing jay-scale and Doppler modes to evaluate the bilateral carotid systems and vertebral arteries. Percentage of diameter of stenosis or no stenosis recorded will be based upon NASCET criteria. FINDINGS: Peak systolic/end diastolic velocities (CM-Sec) CCA Right 100/18 Left 116/29. ICA Right proximal 67/25, distal 92/20. Left proximal 66/23, mid 60/25. Vertebral Right 64/19 Left 44/12. ECA (PS Only) Right 97 left 88. ICA/CCA peak systolic velocity ratio: Right 0.9 Left 0.6 ICA/CCA end diastolic velocity ratio: Right 1.1 Left 0.8 Vertebral arteries: antegrade flow. Comments: Bilateral multiple segments of atherosclerotic calcification. 40% stenosis were less in the right common carotid bulb and right ICA. 50% stenosis or less in the left common carotid, common carotid bulb, and proximal ICA. IMPRESSION: 1. Doppler evaluation of the bilateral carotid systems and vertebral arteries shows no hemodynamically significant stenoses (less than 70%). 2. Moderate amount of plaque in the carotid arteries bilaterally. Bilateral vertebral arteries showed antegrade-cephalad flow. Electronically signed by: Raymundo Cartagena MD 12/28/2019 8:57 AM CDT
== END ==
LOC: US 10:00
PROVIDERS: ATTEND Family Medicine
DX: I65.23 Occlusion and stenosis of bilateral carotid arteries (principal)